=== PATIENT | female | born 2000 | race Caucasian/White ===

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

== ENCOUNTER → 2019-03-24 | Outpatient (CLI) | payer OTHER ==
[2019-03-24 10:01] LABS: ALBUMIN 4.3 g/dL (3.5-5.0); POTASSIUM 4.1 mmol/L (3.5-5.1)
[2019-03-24 10:02] LABS: CALCIUM 8.6 mg/dL (8.3-10.5)
[2019-03-24 10:03] LABS: TOTAL PROTEIN 6.9 g/dL (6.4-8.3)
[2019-03-24 10:05] LABS: TOTAL BILIRUBIN 0.4 mg/dL (0.2-1.2)
[2019-03-24 10:13] LABS: HEMATOCRIT 35.9 % (35.0-45.0); HEMOGLOBIN 11.5 g/dL (12.0-15.0); RED BLOOD COUNT 4.27 M/mm3 (4.10-5.30); RED CELL DISTRIBUTION WIDTH 12.8 % (11.5-14.5); WHITE BLOOD COUNT 7.1 K/mm3 (4.8-10.8)
== END ==
LOC: LAB 08:43 → AMSURD 08:43
PROVIDERS: Family Medicine
DX: N92.0 Excessive and frequent menstruation with regular cycle (principal); R00.1 Bradycardia, unspecified

== ENCOUNTER 2024-03-30 13:21 | Emergency (ER) | payer OTHER ==
[~2024-03-30] VITALS: Ht 165.1 cm; Wt 99.1 kg
[2024-03-30] MEDS ORDERED: METHYLPHENIDATE 10MG PO (14:33)
[2024-03-30 14:47] LABS: BASO # 0.01 K/mm3 (0.02-0.10); EOS # 0.03 K/mm3 (0.04-0.40); EOS % 0.6 % (1.0-5.0); HEMATOCRIT 37.8 % (37.0-47.0); HEMOGLOBIN 12.6 g/dL (12.5-16.0); LYMPH# 1.25 K/mm3 (1.50-4.00); MEAN CELL VOLUME 84 fl (78-100); MEAN CORPUSCULAR HEMOGLOBIN 28 pg (27-31); MEAN CORPUSCULAR HGB CONC 33 g/dL (33-37); MEAN PLATELET VOLUME 8.9 fl (7.4-10.4); MONO # 0.57 K/mm3 (0.20-0.80); NEU # 2.95 K/mm3 (1.40-6.50); PLATELET COUNT 199 K/mm3 (130-400); RED BLOOD COUNT 4.49 M/mm3 (4.10-5.30); RED CELL DISTRIBUTION WIDTH 12.2 % (11.5-14.5); WHITE BLOOD COUNT 4.8 K/mm3 (4.8-10.8)
[2024-03-30 14:55] LABS: ALBUMIN 4.1 g/dL (3.5-5.0)
[2024-03-30 14:56] LABS: CALCIUM 8.9 mg/dL (8.3-10.5)
[2024-03-30 14:58] LABS: TOTAL PROTEIN 7.2 g/dL (6.4-8.3)
[2024-03-30 14:59] LABS: TOTAL BILIRUBIN 0.4 mg/dL (0.2-1.2)
[2024-03-30] MEDS ORDERED: NS 1,000 ML IV SCH (15:00)
[2024-03-30 15:15] LABS: D-DIMER 0.64 mg/L FEU (0.15-0.50)
[2024-03-30 17:00] LABS: PH-URINE 5.5 (5.0 - 8.0); URINE APPEARANCE SLIGHTLY CLOUDY (CLEAR); URINE BILIRUBIN 1+ (NEGATIVE); URINE BLOOD NEGATIVE (NEGATIVE); URINE COLOR YELLOW (YELLOW); URINE GLUCOSE NEGATIVE (NEGATIVE); URINE KETONE 1+ (NEGATIVE); URINE LEUKOCYTE ESTERASE NEGATIVE (NEGATIVE); URINE NITRATE NEGATIVE (NEGATIVE); URINE PROTEIN(semi-quant) 2+ (NEGATIVE)
[2024-03-30 17:01] LABS: URINE MUCUS PRESENT (NOT PRESENT)
[2024-03-30 17:29] VITALS: BP 120/68
== END 2024-03-30 17:29 | disposition home or self-care (01) ==
LOC: ED 13:21
PROVIDERS: Physician Assistant
DX: J10.1 Influenza due to other identified influenza virus with other respiratory manifestations (principal); I95.1 Orthostatic hypotension
CPT/HCPCS: J7030